=== PATIENT | male | born 1960 | race Caucasian/White ===

== ENCOUNTER 2017-08-17 00:35 | Inpatient (IN) | payer OTHER ==
[~2017-08-17] VITALS: Ht 188 cm; Wt 78.5 kg
[~2017-08-17 00:35] MED LIST: CLARITIN10 M1 PO; MELOXICAM15 M1 PO; MULTIVITAMINS1 EAC9 PO; PLAQUENIL200 M1 PO; TYLENOL EXTRA500 M2 PO; VITAMIN D1000 UNIT PO
[2017-08-17] MEDS ORDERED: ACETAMINOPHEN325 M2 PO (06:44)
[2017-08-17] MEDS ORDERED: MUCINEX600 M1 PO (06:45)
[2017-08-17] MEDS ORDERED: SUDAFED 12 HOU120 M1 PO (06:45)
--- NOTE | 2017-08-17 09:23 | Admission Core Measures ---
Acute Coronary Syndrome (CM) ACS Core Measures Acute Coronary Syndrome Diagnosis No Congestive Heart Failure (NEW) CHF Core Measures Congestive Heart Failure Diagnosis No Cerebrovascular Accident (NEW) CVA Core Measures CVA/TIA Diagnosis No Venous Thromboembolism VTE Core Gabriel (View Protocol) VTE Risk Factors Surgery No Mechanical VTE Prophylaxis d/t N/A MechProphylax Ordered No VTE Pharm Prophylaxis d/t NA PharmProphylax ordered Problem List As ranked by this Provider includes Assessment & Plan 1. Primary osteoarthritis of left hip HOME MEDS Home Med List Acetaminophen 325 MG TABLET 4 TAB PO EVERY 8 HRS ARTHRITIS (Reported) Cholecalciferol (Vitamin D3) (Vitamin D) 1,000 UNIT TABLET 1 TAB PO DAILY SUPPLEMENT (Reported) Guaifenesin (Mucinex) 600 MG TAB.ER.12H 1 TAB PO DAILY CONGESTION (Reported) Hydroxychlorquine (Plaquenil) 200 MG TABLET 1 TAB PO BID ARTHRITIS (Reported) Loratadine (Claritin) 10 MG TABLET 1 TAB PO DAILY ANTIHISTAMINE (Reported) Meloxicam 15 MG TABLET 1 TAB PO DAILY ANTI INFLAMMATORY (Reported) Multiple Vitamin (Multivitamins) 1 EACH TABLET 1 TAB PO DAILY SUPPLEMENT ( Reported) Pseudoephedrine HCl (Sudafed 12 Hour) 120 MG TABLET.ER 1 TAB PO TWICE DAILY CONGESTION (Reported)
--- NOTE | 2017-08-17 09:26 | Surg Short-stay <48hrs Dis Sum ---
Visit Information Visit Dates Admission Date: 08/17/17 Discharge Date: 08/17/17 Surgical Short Stay DC Summary Admission Diagnosis: primary osteoarthritis left hip Final Diagnosis: same, sp left total hip arthroplasty Procedure(s): left total hip arthroplasty Summary/Significant Findings: Patient was admitted to the hospital for an elective total joint replacement. Procedure was tolerated well and patient was transferred to a general surgical floor. Diet was advanced and tolerated. Physical therapy performed evaluation and treatment. At time of hospital discharge, vital signs were stable, neurovascular status was intact, and pain was controlled with the use of oral pain medications. Patient will be toe-touch weightbearing to the left lower extremity for 1 month. Condition at Discharge: stable Discharge Disposition: home health services Discharge instructions provided to patient/family: Yes Post discharge follow-up plan: Call to schedule/confirm appt to be seen 6 weeks from date of surgery
[2017-08-17] MEDS ORDERED: DILAUDID2 M1 PO (09:33)
[2017-08-17] MEDS ORDERED: MIRALAX17 G1 PO (09:33)
[2017-08-17] MEDS ORDERED: MS CONTIN15 M3 PO ×2 (09:33→13:30)
[2017-08-17] MEDS ORDERED: COLACE100 M1 PO (09:33)
[2017-08-17] MEDS ORDERED: ASPIRIN EC325 M2 PO (09:33)
[2017-08-17] MEDS ORDERED: PROTONIX20 M1 PO (09:33)
--- NOTE | 2017-08-17 09:36 | Patient Discharge Instructions ---
Discharge Instructions General Discharge Information You were seen/treated for: Left hip pain due to osteoarthritis You had these procedures: Left total hip arthroplasty Watch for these problems: Increasing pain despite the use of pain medication Increasing redness, warmth or swelling Drainage of any type from incision Inability to bear weight on operative leg Persistent nausea and vomiting Fever greater than 101.5 degrees Other wound care: Please keep wound clean and dry. No ointments or lotions of any type on or near incision. Your dressing will be changed by your nurse on the second day after your surgery. Daily dry dressing changes are recommended each day thereafter. You may shower 48hr after surgery. Do not soak your wound- no tub baths or swimming. Special Instructions: Aspirin: You are taking this medication to help prevent blood clot formation. Please take with food to protect your stomach lining. Take as directed. Protonix (pantoprazole): Take this medication to protect your stomach lining while taking high dose aspirin. Constipation: Pain medication can cause constipation. It is recommended that you take Colace and miralax daily. You may discontinue this medication if you develop loose stool or diarrhea. If you wish to continue this medication, it is available over the counter. If you are unable to move your bowels or pass gas after several days, please contact your doctor. Diet Continue normal diet: Yes Activity Additional ACTIVITY Info: Toe touch weightbearing to left lower extremity for 1 month. Acute Coronary Syndrome Inclusion Criteria At DC or during hospital stay patient has or had the following: ACS DIAGNOSIS No Discharge Core Measures Meds if any: Prescribed or Continued at Discharge Meds if any: NOT Prescribed or Continued at Discharge Congestive Heart Failure Inclusion Criteria At DC or during hospital stay patient has or had the following: CHF DIAGNOSIS No Discharge Core Measures Meds if any: Prescribed or Continued at Discharge Meds if any: NOT Prescribed or Continued at Discharge Cerebrovascular accident Inclusion Criteria At DC or during hospital stay patient has or had the following: CVA/TIA Diagnosis No Discharge Core Measures Meds if any: Prescribed or Continued at Discharge Meds if any: NOT Prescribed or Continued at Discharge Venous thromboembolism Inclusion Criteria VTE Diagnosis No VTE Type NONE VTE Confirmed by (Test) NONE Discharge Core Measures - Per Current guidelines, there needs to be overlap - treatment for the first 5 days of Warfarin therapy. - If discharged on Warfarin prior to 5 days of - overlap therapy, the patient will need to be - assessed for post discharge needs including - *Post discharge parental anticoagulation - *Warfarin and/or parental anticoagulation education - *Follow up date to check INR post discharge At least 5 days overlap therapy as Inpatient No Meds if any: Prescribed or Continued at Discharge Note: Overlap Therapy is Warfarin and Anticoagulant Meds if any: NOT Prescribed or Continued at Discharge
[2017-08-17 11:15] VITALS: BP 120/69
--- NOTE | 2017-08-17 11:19 | RADIOLOGY REPORT ---
EXAMINATION: XR HIP, LEFT CLINICAL INFORMATION: Status post left total hip replacement. COMPARISON: None TECHNIQUE: Two views of the left hip. FINDINGS: There is a total left hip arthroplasty. The femoral head component articulates appropriately with the acetabular component. No periprosthetic lucency or fracture. Postoperative soft tissue gas is noted. The visualized left hemipelvis is intact. IMPRESSION: Normal postoperative appearance of the left total hip prosthesis.
[2017-08-17 13:22] VITALS: BP 131/70
--- NOTE | 2017-08-17 13:30 | PN- Orthopedic ---
Subjective Subjective: Patient with complaints of mild soreness to the left hip. He is otherwise feeling well. He denies any fever or flulike illness. He has been up with physical therapy, toe-touch weightbearing. He would very much like to be discharged home today Objective Vital Signs and I&Os Vital Signs Date Time Temp Pulse Resp B/P B/P Pulse O2 O2 Flow FiO2 Mean Ox Delivery Rate 08/17 1322 97.4 87 20 131/70 100 Room Air 08/17 1115 97.7 73 18 120/69 100 Room Air Intake & Output 08/17 1600 08/17 0800 08/17 0000 08/16 1600 08/16 0800 08/16 0000 Intake Total Output Total Balance Patient 173 lb Weight Weight Reported by Patient Measurement Method Physical Exam: Well-developed well-nourished no apparent distress. HEENT: Atraumatic, extraocular motion intact Neck: Supple, no lymphadenopathy Respiratory: No respiratory distress Extremities: No edema left lower extremity hip dressing in place, Dressing clean dry and intact Mild thigh swelling No signs of infection. No shortening or rotation Hip range of motion is limited and without unexpected pain Neurovascularly intact distally Bilateral calves are supple, nontender. Neuro: Alert and oriented x3 Psych: Mood affect normal, normal memory normal judgment. Skin: Warm and dry, no rash on exposed skin Assessment/Plan Assessment/Plan Postop day #0 status post left total hip arthroplasty anterior approach, complicated by intraoperative acetabular fracture Perioperative antibiotics. Pain medication as needed. Out of bed Physical therapy, toe-touch weightbearing secondary to acetabular fracture that occurred intraoperatively. TTWB for 30 days. IV fluids Regular diet Follow a.m. labs Aspirin for DVT prophylaxis ALPS for DVT prophylaxis Regular home meds Dressing change postop day 2 Cleared PT for home awaiting void- dc home today. Core Measures Venous Thromboembolism VTE Risk Factors Surgery No Mechanical VTE Prophylaxis d/t N/A MechProphylax Ordered No VTE Pharm Prophylaxis d/t NA PharmProphylax ordered
--- NOTE | 2017-08-17 14:28 | Operative Report ---
Operative/Inv Procedure Report Surgery Date: 08/17/17 Name of Procedure: Left total hip replacement Pre-Operative Diagnosis: Primary left hip DJD Post-Operative Diagnosis: Same Estimated Blood Loss: 300 Surgeon/Supply Planner: Brenda BLOUNT,Michael Harrell Anesthesia: block Operative/Procedure Note Note: Description of Procedure: The patient was taken to the operating room and positively identified. After induction of spinal anesthesia and administration of appropriate pre-operative antibiotics, the patient was positioned supine on the operating room table and all bony prominences were well padded. After performing a surgical timeout, the left lower extremity was prepped and draped in the usual sterile fashion. A direct anterior approach was made to the left hip. The incision was carried sharply through superficial soft tissues to the level of the fascia. Meticulous hemostasis was maintained with Bovie electocautery. The fascia over the tensor fascia louisa muscle was opened sharply and the interval between the TFL and the sartorius was entered bluntly taking care to stay lateral to the lateral femoral cutaneous nerve. Retractors were placed around the femoral neck and the pericapsular fat was identified. The ascending branches of the lateral femoral circumflex vessels were identified and carefully coagulated. The pericapsular fat and anterior capsule were then resected. A napkin ring osteotomy was performed and the femoral head was removed without difficulty. Attention was then turned to the acetabulum. After appropriate placement of retractors, the acetabulum was exposed. Soft tissue was cleaned from the acetabular margin and notch. Overhanging osteophytes were removed and the teardrop was exposed. The acetabulum was then sequentially reamed. After impacting the first acetabular implant, excellent fit was not obtained. Component was removed and the acetabular bed was inspected. A very faint crack was noted in the medial wall. The acetabular bed was reamed up 1 size and fit with a a 66 mm Kaykay Trident Tritanium shell. Multiple screws were used for supplemental fixation. The cup was then fit with a a 36 mm Trident X3 zero degree eccentric polyethylene insert. Attention was then turned to the femur. After performing the appropriate ligament releases, the proximal femur was exposed. It was then sequentially broached to accept a size 9 [place] accolade 2 132 neck angle stem. This was trialed for leg length and stability. The trial component was removed and the final component was impacted into place. The trunnion was carefully cleaned and fit with a 36 mm, +5 Biolox delta ceramic femoral head. The hip was reduced and put through a full range of motion and found to be stable. The articular space was then irrigated with sterile saline. The periarticular soft tissues were infilitrated with Marcaine. The fascial layer was closed with interrupted #1 vicryl suture and the skin was re-approximated with interrupted 2 -0 vicryl. The skin was closed with a running 3-0 V-Lock suture. Steri-strips and a sterile dressing were applied. The patient was awakened and taken to the recovery room in satisfactory condition.
[2017-08-17 15:00] VITALS: BP 110/70
== END 2017-08-17 15:52 | disposition home health service (06) | DRG 470 ==
LOC: SDA 00:35 → 2NB 00:35 → ENRESERV 10:26 → ENTRNSPT 10:47 → EDTRNSPT 11:01 → EDTRNSPTSTS 11:01 → 2NB 11:10 → CMPTRNSPT 11:15 → ENPENDDIS 13:40 → ENTRNSPT 15:45 → CMPTRNSPT 15:50 → 2NB 15:52
PROC: 0SRB02Z Replacement of Left Hip Joint with Metal on Polyethylene Synthetic Substitute, Open Approach (ICD-10-PCS; principal; 2017-08-17)
DX: M16.12 Unilateral primary osteoarthritis, left hip (principal); M06.9 Rheumatoid arthritis, unspecified; D86.9 Sarcoidosis, unspecified; E55.9 Vitamin D deficiency, unspecified; R91.8 Other nonspecific abnormal finding of lung field; I12.9 Hypertensive chronic kidney disease with stage 1 through stage 4 chronic kidney disease, or unspecified chronic kidney disease; N18.9 Chronic kidney disease, unspecified; Z79.52 Long term (current) use of systemic steroids; Z91.048 Other nonmedicinal substance allergy status
CPT/HCPCS: 2NBP; 73502-LT; 97116-GO; 97161-GP; 97530-GO; C9399; J0690; J0735; J1885; J2405; J2550; J3490; J7042; Q2036